=== PATIENT | female | born 1955 | race Two or more races ===

== ENCOUNTER 2016-07-26 06:39 | Day surgery (SDC) | payer MEDICARE, MEDICAID ==
[~2016-07-26 06:39] MED LIST: AFEDITAB CR60 M1 PO; ALLERGY RELIEF10 MG PO; ATENOLOL50 MG; BACTRIM DS TABL1 TAB; CALCIUM600 MG PO; CELLCEPT500 M1 PO; CELLCEPT500 MG; CELLCEPT500 MG PO; CLARITIN10 M6 PO; CLONAZEPAM0.5 MG PO; COUMADIN7.5 MG; CRANBERRY PO; CRESTOR10 MG; CRESTOR10 MG PO; CRESTOR20 MG PO; CRESTOR40 MG PO; CYCLOBENZAPRINE10 M1 PO; FERROUS SU324 ( 65 ); FERROUS SU325 ( 65 ) PO; FERROUS SULFATE; FLEXERIL10 MG; FLEXERIL10 MG PO; HYDROCHLOR; KLOR-CON M2020 MEQ PO; KLOR-CON20 MEQ PO; LASIX20 MG; LEVOFLOXACIN250 MG PO; LIPITOR80 M1 PO; LISINOPRIL10 MG; LISINOPRIL10 MG PO; LISINOPRIL20 MG; LISINOPRIL40 MG; LISINOPRIL40 MG PO; LOPRESSOR25 MG/TA1 PO; LOVENOX80 MG/0.1 SC; LOVENOX80 MG/0.8 SQ; MAG-OXIDE400 MG PO; MAGNESIUM OXID400 MG; METOPROLOL SUCC25 MG PO; MINIPRESS1 MG; MINIPRESS1 MG PO; NITROSTAT0.4 M1; NORCO 5/3251 TA1 PO; OMEPRAZOLE20 M2 PO; OMEPRAZOLE40 M2 PO; OMEPRAZOLE40 MG PO; PLAQUENIL200 M1 PO; PLAQUENIL200 MG; PLAQUENIL200 MG PO; PLAVIX75 MG PO; POTASSIUM CHLO10 MEQ PO; PREDNISONE10 MG; PREDNISONE10 MG PO; PREDNISONE5 M1 PO; PREDNISONE5 MG PO; PRINIVIL10 M1 PO; PROCARDIA XL30 MG; PROCARDIA XL30 MG PO; TOPROL XL25 M1 PO; TRAMADOL HCL50 MG; TRAMADOL HCL50 MG PO; ULTRAM50 M1 PO; ULTRAM50 MG; VITAMIN C PO; VITAMIN C250 MG; VITAMIN C500 M3 PO; VITAMIN D 22000 UNIT PO; VITAMIN D32000 UNI1 PO; VITAMIN D32000 UNI3 PO; WARFARIN SODIU7.5 MG; XARELTO20 M1 PO; XARELTO20 MG PO
[2016-07-26 08:19] LABS: PROTHROMBIN TIME 12.1 SECONDS (9.0-13.6)
[2016-07-27 05:23] LABS: HCT-HEMATOCRIT 26.4 % (34.0-49.0); HGB-HEMOGLOBIN 8.2 gm/dl (12.0-15.5); IMMATURE GRANULOCYTES ABSOLUTE 0.06 tho/cmm (0-0.03); IMMATURE GRANULOCYTES PERCENT 0.4 % (0-0.3); LYMPH % 5.6 % (20-45); LYMPH ABSOLUTE COUNT 0.9 tho/cmm (0.8-4.5); MCH (MEAN CORPUSCULAR HGB) 28.3 pg (28.0-32.0); MCHC MEAN CORPUSCULAR HGB CONC 31.1 % (32.0-36.0); MEAN PLATELET VOLUME 10.7 cmc (9.4-12.4); MONOCYTE ABSOLUTE COUNT 0.8 tho/cmm (0.0-1.2); NEUTROPHIL ABSOLUTE COUNT 13.7 tho/cmm (1.6-8.0); NEUTROPHIL-AUTOMATED 13.7 tho/cmm (1.6-8.0); PLATELET COUNT 249 tho/cmm (150-450); RED CELL DISTRIBUTION WIDTH 14.4 % (12.4-16.4); WHITE BLOOD COUNT 15.4 tho/cmm (4.0-10.0)
[2016-07-27 05:38] LABS: ANION GAP 15 mmol/L (0-20); BLOOD UREA NITROGEN 14 mg/dl (6-24); CALCIUM 8.8 mg/dl (8.5-10.5); CARBON DIOXIDE-VENOUS 24 mmol/L (22-32); CHLORIDE 105 mmol/l (96-110); CREATININE 1.25 mg/dl (0.50-1.10); GLUCOSE 122 mg/dL (70-110); POTASSIUM 4.5 mmol/L (3.7-5.1); SODIUM 139 mmol/L (135-145); eGFR VALUE FOR BLACK 54 mL/Min
[2016-07-27] MEDS ORDERED: ULTRAM50 M1 PO (15:53)
[2016-07-27] MEDS ORDERED: MOBIC7.5 M2 PO (15:53)
[2016-07-27] MEDS ORDERED: PERCOCET 5-3251 EACH PO (15:54)
[2016-07-29 04:39] LABS: BASO % 0.2 % (0-2); EOS % 1.2 % (0-7); EOSINOPHIL ABSOLUTE COUNT 0.2 tho/cmm (0.0-0.7); HCT-HEMATOCRIT 27.4 % (34.0-49.0); HGB-HEMOGLOBIN 8.3 gm/dl (12.0-15.5); IMMATURE GRANULOCYTES ABSOLUTE 0.11 tho/cmm (0-0.03); IMMATURE GRANULOCYTES PERCENT 0.8 % (0-0.3); LYMPH % 23.2 % (20-45); LYMPH ABSOLUTE COUNT 3.1 tho/cmm (0.8-4.5); MCH (MEAN CORPUSCULAR HGB) 27.9 pg (28.0-32.0); MCHC MEAN CORPUSCULAR HGB CONC 30.3 % (32.0-36.0); MCV (MEAN CELL VOLUME) 91.9 fl (82.0-96.0); MEAN PLATELET VOLUME 10.6 cmc (9.4-12.4); MONOCYTE ABSOLUTE COUNT 1.1 tho/cmm (0.0-1.2); NEUTROPHIL ABSOLUTE COUNT 8.8 tho/cmm (1.6-8.0); NEUTROPHIL-AUTOMATED 8.8 tho/cmm (1.6-8.0); NEUTROPHILS % 66.6 % (40-80); PLATELET COUNT 244 tho/cmm (150-450); RED BLOOD COUNT 2.98 mil/cmm (4.00-5.20); RED CELL DISTRIBUTION WIDTH 14.8 % (12.4-16.4); WHITE BLOOD COUNT 13.2 tho/cmm (4.0-10.0)
== END 2016-07-31 13:40 ==
LOC: SHSB 06:39 → ORE 09:24 → PACU 12:40 → 5EB 13:55
PROVIDERS: Family Medicine; Internal Medicine; Orthopaedic Surgery Sports Medicine
PROC: 0LQ14ZZ Repair Right Shoulder Tendon, Percutaneous Endoscopic Approach (ICD-10-PCS; principal; 2016-07-26)
PROC: 0LS14ZZ Reposition Right Shoulder Tendon, Percutaneous Endoscopic Approach (ICD-10-PCS; 2016-07-26)
PROC: 0HRBXK3 Replacement of Right Upper Arm Skin with Nonautologous Tissue Substitute, Full Thickness, External Approach (ICD-10-PCS; 2016-07-26)
DX: M75.121 Complete rotator cuff tear or rupture of right shoulder, not specified as traumatic (principal); M75.21 Bicipital tendinitis, right shoulder; M75.41 Impingement syndrome of right shoulder; I25.2 Old myocardial infarction; I25.10 Atherosclerotic heart disease of native coronary artery without angina pectoris; I73.9 Peripheral vascular disease, unspecified; K21.9 Gastro-esophageal reflux disease without esophagitis; I12.9 Hypertensive chronic kidney disease with stage 1 through stage 4 chronic kidney disease, or unspecified chronic kidney disease; N18.3 Chronic kidney disease, stage 3 (moderate); M81.0 Age-related osteoporosis without current pathological fracture; Z79.01 Long term (current) use of anticoagulants; Z79.899 Other long term (current) drug therapy; Z86.73 Personal history of transient ischemic attack (TIA), and cerebral infarction without residual deficits; Z86.718 Personal history of other venous thrombosis and embolism; Z87.891 Personal history of nicotine dependence; Z87.440 Personal history of urinary (tract) infections; Z90.89 Acquired absence of other organs; Z89.512 Acquired absence of left leg below knee; Z98.51 Tubal ligation status; Z98.890 Other specified postprocedural states
CPT/HCPCS: C1713; G8978-GP-CJ; G8979-GP-CJ; G8979-GP-CK; G8980-GP-CK; J0171; J0690; J1720; J2250; J7512